=== PATIENT | male | born 1965 | race Two or more races ===

== ENCOUNTER 2025-03-06 19:01 | Emergency (ER) | payer MEDICAID, SELFPAY ==
[2025-03-06 19:04] VITALS: BMI 62.5
[2025-03-06 19:26] VITALS: BP 175/90; PULSE 81; RESP 18; TEMP 37.4; O2SAT 97; BMI 28.5
--- NOTE | 2025-03-06 19:29 | EDNOTE_ITS ---
ED Recheck Abnl Lab Rx-RME/HPI General Chief Complaint: General Adult/Misc Complain Stated Complaint: high potasium Time Seen by Provider: 03/06/25 19:33 Arrival date/time: 03/06/25 19:01 RME / HPI RME / HPI narrative: This section includes all my notes and documentations, including HPI, PE, and ED course. Rik Navarro MD HPI: 59 y/o male with Hx of Type II DM, Renal Disease, and HTN presents with elevated potassium level. Routine blood test ordered by PCP. Patient takes Metformin, Atorvastatin, and Lisinopril daily. Denies chest pain. No palpitations. No nausea or vomiting. No numbness or tingling. No altered mental status. No abdominal pain or distention. No urinary symptoms. No other complaints. ROS: All negative except as documented in HPI. Physical Exam: General:? Alert and oriented.? No acute distress.?? Eyes:? Conjunctivae and lids clear.? EOMI.? PERRL. ENT:? No nasal congestion.? Neck:? Supple.? Heart:? RRR.? Lungs:? No respiratory distress.? Good air movement.? No rhonchi, wheezing, rales.?? Abdomen:? Soft and nontender.? Normal bowel sounds.? No distension.? No rebound or guarding.?? Back:? No CVA tenderness.?? Legs:? No clubbing, cyanosis, edema.? Skin:? Warm and dry.?? Neuro:? Alert and oriented X 3.? Cranial Nerves II-XII grossly intact.? No peripheral motor deficits. I reviewed all diagnostic test results: My interpretation of the EKG is: Sinus rhythm (70 bpm) with nonspecific ST-T changes. Blood tests unremarkable except Mg 1.2. At this point, diagnoses include: Hypomagnesemia. Treatment here included: Magnesium sulfate Ivpb 4 G, IVF. Patient remained stable. Recommended outpatient care. Based on my best medical judgment, made decision no further evaluation or treatment indicated at this time. Patient understands and agrees to the discharge instructions customized and printed, see below. Discharge Instructions from Dr. Navarro printed for you: 1. After evaluation, your potassium level is normal. 2. But your magnesium level was severely low. You were given intravenous magnesium. Your organs need magnesium to function. 3. Take magnesium pills as prescribed. Increase food rich in magnesium. Such as green and leafy vegetables and peanuts and almonds and cashews. 4. See a private doctor on 03/08/2025 for recheck, including repeat magnesium level. 5. Seek immediate medical care with muscle weakness, shaking, muscle cramps, or with any concerns. Rik Navarro MD Related Data Home Medications ?Medication ?Instructions ?Recorded ?Confirmed atorvastatin 40 mg tablet mg 02/03/23 lisinopril 20 mg tablet 20 mg PO DAILY 02/03/23 07/0 01/21 Held on 02/07/23. Instructions: Resume on 02/12/23. Repeat BMP with PCP on 02/11/23 before restarting lisinopril on Tuesday. metformin 1,000 mg tablet 1,000 mg PO BID 02/03/2301/21 Previous Rx's ?Medication ?Instructions ?Recorded magnesium oxide 400 mg PO BID #60 tabs 03/07 Allergies Allergy/AdvReac Type Severity Reaction Status Date / Time No Known Allergies Allergy Verified 03/06/25 19:10 Review of Systems Review of Systems Systems Reviewed: All systems reviewed, normal except as documented Past Medical History Past Medical History CARDIAC: Positive Cardiac Disorders, Hypercholesterolemia and Hypertension GENITOURINARY: Positive Renal Disease ENDOCRINE: Positive Endocrine Disorders and Diabetes Mellitus Type 2 ED Exam Narrative Physical exam: Refer to HPI Course Quality Measures none Orders Category Date Time Status EKG (ED ONLY) *Do not use* NOW Care 03/06/25 19:30 Completed Saline [Insert IV] NOW Care 03/06/25 21:29 Completed EKG (ED Only) Stat Exams 03/06/25 19:30 Draft Bilirubin,Direct Stat Lab 03/06/25 20:44 Completed CBC Stat Lab 03/06/25 20:44 Completed CMP [Comprehensive Metabolic Panel] Stat Lab 03/06/25 20:44 Completed Magnesium Stat Lab 03/06/25 20:44 Completed Troponin I Stat Lab 03/06/25 20:44 Completed Magnesium Sulfate 4 GM Ivpb [Magnesium Sulfate Ivpb] Med 03/06/25 21:30 Discontinued 4 gm in 50 ml IV X1 Sodium Chloride 0.9% 1000 ml [Ns] 1,000 ml Med 03/06/25 21:30 Discontinued IV 999 mls/hr Vital Signs Vital signs: Vital Signs Temperature 99.4 F 03/06/25 19:26 Pulse Rate 81 03/06/25 19:26 Respiratory Rate 18 03/06/25 19:26 Blood Pressure 175/90 H 03/06/25 19:26 Pulse Oximetry (%) 97 03/06/25 19:26 Oxygen Delivery Method Room Air 03/06/25 19:26 Recheck / Abnormal Lab / Rx MDM Narrative MDM Narrative:: Scribe Attestation: Amanda Garcia am scribing for and in the presence of Dr. Navarro. Provider Notation: Although this document has been carefully reviewed, there may still be some phonetic and other typographical errors.? These errors are purely grammatical due to imperfections in the software program and should not be construed in any way to? compromise the substance of the patient's medical care during this visit. 59 y/o male with Hx of Type II DM, Renal Disease, and HTN presents with elevated potassium level. Routine blood test ordered by PCP. Patient takes Metformin, Atorvastatin, and Lisinopril daily. Denies chest pain. No palpitations. No nausea or vomiting. No numbness or tingling. No altered mental status. No abdominal pain or distention. No urinary symptoms. No other complaints. Patient data External records reviewed:: [facility] previous records (Reviewed prior ED records from 02/02/23. Patient was seen for Acute kidney injury.) Clinical information provided by:: patient Social determinants that could affect healthcare access:: none Patient has the following chronic illnesses:: Hypercholesterolemia, Hypertension, Renal Disease, Diabetes Mellitus Type 2 How is presenting disease/condition affected by chronic disease/condition?: exacerbated by Evaluation data The following diagnostics were reviewed and interpreted by me:: lab results and EKG tracing(s) (My interpretation of the EKG is: Sinus rhythm (70 bpm) with nonspecific ST-T changes. Rik Navarro MD) Lab and/or radiology exams considered but not ordered:: None Interpretation Summary: I reviewed all diagnostic test results: My interpretation of the EKG is: Sinus rhythm (70 bpm) with nonspecific ST-T changes. Blood tests unremarkable except Mg 1.2. Medications / Prescriptions Medications or Prescriptions considered but not ordered:: None Medication administrations:: Medication Administration History Discontinued Medications Magnesium Sulfate (Magnesium Sulfate Ivpb) 4 gm in 50 mls @ 12.5 mls/hr IV X1 ONE Stop: 03/07/25 01:29 Last Infusion: 03/07/25 00:36 Dose: Infused Documented By: Admin: 03/06/25 21:49 Dose: 12.5 mls/hr Documented By: EF Sodium Chloride (Ns) 1,000 mls @ 999 mls/hr IV .Q1H1M ONE Stop: 03/06/25 22:30 Last Infusion: 03/06/25 23:15 Dose: Infused Documented By: Admin: 03/06/25 21:50 Dose: 999 mls/hr Documented By: EF Magnesium sulfate Ivpb 4 G, IVF Consultations Consultation(s) initiated? (list below): No Diagnosis Recheck Differential Diagnosis: other (Electrolyte normalities, dehydration, acute coronary syndrome) Most likely diagnosis given after review of the tests above:: Hypomagnesemia Admission Indicated Admission indicated?: not indicated Explain why admission is indicated or not indicated:: With significant improvement and no condition needing emergent intervention, there was no indication for admission. Admission Request Was there a request for admission?: No Disposition Plan Disposition Plan: Discharge Discharge Attestation Discharge Attestation: The patient and all family members were given an opportunity to ask questions and understood the discharge instructions. Discharge instructions specifically effects, indications for sooner follow up or return to the emergency department, and the expected course of current diagnosis. Patient condition: Stable Discharge Plan Plan Patient Disposition: HOME (Self Care) Prescriptions/Referrals Prescriptions/Med Rec: New magnesium oxide 400 mg magnesium tablet 400 mg PO BID Qty: 60 0RF No Action atorvastatin 40 mg tablet lisinopril 20 mg tablet 20 mg PO DAILY metformin 1,000 mg tablet 1,000 mg PO BID Referrals: No Primary/Family,Physician [Primary Care Provider] - In 1 week Problem List Clinical Impression: Hypomagnesemia Patient/Caregiver Discharge Instructions Discharge Activity: activity as tolerated Education Materials: Magnesium (Blood) Additional Instructions: Discharge Instructions from Dr. Navarro printed for you: 1. After evaluation, your potassium level is normal. 2. But your magnesium level was severely low. You were given intravenous magnesium. Your organs need magnesium to function. 3. Take magnesium pills as prescribed. Increase food rich in magnesium. Such as green and leafy vegetables and peanuts and almonds and cashews. 4. See a private doctor on 03/08/2025 for recheck, including repeat magnesium level. 5. Seek immediate medical care with muscle weakness, shaking, muscle cramps, or with any concerns. Instrucciones de august del Dr. Navarro impresas para usted: 1. Tras la evaluaci?n, mckinney nivel de potasio es normal. 2. Sin embargo, mckinney nivel de magnesio estaba muy bajo. Le administraron magnesio por v?a intravenosa. Joellen ?rganos necesitan magnesio para funcionar. 3. Torboy las pastillas de magnesio seg?n lo prescrito. Aumente el consumo de alimentos ricos en magnesio, ulises verduras de hoja gibson, cacahuetes, almendras y anacardos. 4. Consulte con un m?dico particular el 03/08/2025 para bossman nueva evaluaci?n, incluyendo la revisi?n del nivel de magnesio. 5. Busque atenci?n m?dica inmediata si presenta debilidad muscular, temblores, calambres musculares o cualquier otra inquietud. Print Language: Slovenian Stand Alone Forms: Gloria Award Info., Patient Portal Info Letter
--- NOTE | 2025-03-06 19:30 | EKG_ITS ---
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
[2025-03-06 20:59] LABS: Basophils # (Auto) 0.1 Thou/mm3 (0.0-0.2); Basophils % (Auto) 1 % (0-2.5); Eosinophils # (Auto) 0.1 Thou/mm3 (0.0-0.5); Eosinophils % (Auto) 2 % (0-10); Hematocrit 35.3 % (41.0-53.0); Hemoglobin 12.2 g/dL (13.5-16.0); Immature Granulocytes Auto 0.02 Thou/mm3 (0.00-0.00); Lymphocytes # (Auto) 2.9 Thou/mm3 (1.0-4.8); Lymphocytes % (Auto) 37 % (10-50); Mean Corpuscular HGB Conc 34.6 g/dl (31.0-37.0); Mean Corpuscular Hemoglobin 31.9 pg (25.0-35.0); Mean Corpuscular Volume 92 fL (80-100); Monocytes # (Auto) 0.6 Thou/mm3 (0.0-0.8); Monocytes % (Auto) 8 % (0-12); Neutrophils # (Auto) 4.0 Thou/mm3 (1.8-7.7); Neutrophils % (Auto) 52 % (37-80); Nucleated Red Blood Cell # 0.00 Thou/mm3 (0.00-0.00); Nucleated Red Blood Cell % 0 /100 WBC (0); Platelet Count 217 Thou/mm3 (140-440); RDW Standard Deviation 42.4 fL (35.1-43.9); Red Blood Count 3.82 Miln/mm3 (4.50-5.90); White Blood Count 7.7 Thou/mm3 (3.8-10.6)
[2025-03-06 21:26] LABS: Alanine Aminotransferase 24 U/L (10-49); Albumin, Serum 4.6 gm/dL (3.5-5.0); Albumin/Globulin Ratio 1.8 (1.2-2.2); Alkaline Phosphatase 114 U/L (46-116); Anion Gap 8 (7-16); Aspartate Amino Transferase 19 U/L (0-34); BUN/Creatinine Ratio 20 Ratio (12-20); Bilirubin,Direct 0.1 mg/dL (0.0-0.3); Bilirubin,Total 0.4 mg/dL (0.3-1.2); Blood Urea Nitrogen 20 mg/dL (9-23); Calcium 9.6 mg/dL (8.3-10.6); Calcium (Corrected) 9.6 mg/dL (8.5-10.1); Carbon Dioxide 22.5 mMol/L (20.0-31.0); Chloride 110 mMol/L (98-107); Creatinine (Component) 1.0 mg/dL (0.6-1.3); Estimated Creatinine Clearance 71.3 mL/min (>60); Globulin 2.6 gm/dL (2.3-3.5); Glucose 155 mg/dL (74-106); Magnesium 1.2 mg/dL (1.6-2.6); Osmolality,Calculated 285 (275-295); Potassium 5.1 mMol/L (3.4-5.1); Sodium 140 mMol/L (136-145); Total Protein 7.2 gm/dL (5.7-8.2); Troponin I < 0.020 ng/mL (0.0-0.045); eGFR > 60 See Note
[2025-03-06 21:40] VITALS: BP 157/89; PULSE 62; RESP 16; O2SAT 100
[2025-03-06] MEDS: Magnesium Sulfate 4 GM Ivpb 4 GM/50 ML BAG IV (21:49)
[2025-03-06] MEDS: SODIUM CHLORIDE 0.9% 1000 ML 1,000 ML 999 ML IV (21:50)
[2025-03-07 00:46] VITALS: BP 151/88; PULSE 73; RESP 16; O2SAT 100
== END 2025-03-07 00:48 | disposition home or self-care (01) ==
PROVIDERS: Emergency Provider Emergency Medicine
DX: E83.42 Hypomagnesemia (principal); I49.8 Other specified cardiac arrhythmias; I10 Essential (primary) hypertension
CPT/HCPCS: 36415; 80053; 82248; 83735; 84484; 85025; 93005; 96365; 96366; 99283; J3475; J7030